=== PATIENT | female | born 1960 | race Caucasian/White ===

== ENCOUNTER 2018-02-05 10:04 | Emergency (ER) | payer OTHER ==
[~2018-02-05] VITALS: Ht 157.5 cm; Wt 60.9 kg
[2018-02-05] VITALS (7 sets, daily range): BP systolic 116–171; BP diastolic 56–92; PULSE 53–85; RESP 16; TEMP 98; O2SAT 97–100
[~2018-02-05 10:04] MED LIST: DARU800T PO; INTE100T PO; LIPI20TA PO; RALT400 PO; RITO100 PO
[2018-02-05 10:31] LABS: BASOPHIL # 0.2 TH/MM3 (0-0.2); BASOPHIL % 1.3 % (0.0-2.0); EOSINOPHIL # 0.3 TH/MM3 (0-0.4); EOSINOPHIL % 2.3 % (0.0-4.0); HEMATOCRIT 40.2 % (35.0-46.0); HEMOGLOBIN 13.3 GM/DL (11.6-15.3); LYMPHOCYTE # 5.3 TH/MM3 (1.0-4.8); MEAN CORPUSCULAR HEMOGLOBIN 29.1 PG (27.0-34.0); MEAN CORPUSCULAR HGB CONC 33.1 % (32.0-36.0); MEAN PLATELET VOLUME 8.2 FL (7.0-11.0); MONO % 11.2 % (0.0-8.0); MONOCYTE # 1.4 TH/MM3 (0-0.9); NEUT % 41.2 % (16.0-70.0); PLATELET COUNT 270 TH/MM3 (150-450); RED BLOOD COUNT 4.57 MIL/MM3 (4.00-5.30); RED CELL DISTRIBUTION WIDTH 13.3 % (11.6-17.2); WHITE BLOOD COUNT 12.1 TH/MM3 (4.0-11.0)
--- NOTE | 2018-02-05 10:32 | RADRPT ---
EXAM DATE: 02/05/2018 10:21 AM EDT AGE/SEX: 57 years / Female INDICATIONS: Stroke alert, left facial droop with left side weakness. CLINICAL DATA: This is the patient's initial encounter. Patient reports that signs and symptoms have been present for 1 day and indicates a pain score of 0/10. MEDICAL/SURGICAL HISTORY: Non-responsive. Non-responsive. RADIATION DOSE: 34.11 CTDI (mGy) COMPARISON: No prior exams available for comparison. Report was called by [ ] TECHNIQUE: CT of the head without contrast. Using automated exposure control and adjustment of the mA and/or kV according to patient size, radiation dose was kept as low as reasonably achievable to ob tain optimal diagnostic quality images. FINDINGS: Per nurse patient has a history of an AVM. There appear to be glue adjacent to a large parenchymal he morrhage measuring 4 cm that has broken into the third ventricle. There is a small amount of subarach noid blood present. There is significant mass effect with [id number] shift across the corpus callo sum with effacement of the right lateral ventricle. There is no midline shift as yet. The left hemisphere is unremarkable Posterior fossa appears normal exception of some subarachnoid blood. CONCLUSION: 1. Large right orbital frontal hemorrhage as above in this patient with history of an AVM. Significa nt mass effect is present. 2. Patient has a history of an arteriovenous malformation. Electronically signed by: Zhang Powers MD 02/05/2018 10:30 AM EDT
[2018-02-05] MEDS ORDERED: DOLU1TAB PO (10:41)
[2018-02-05] MEDS ORDERED: DARU1TAB2 PO (10:41)
[2018-02-05] MEDS ORDERED: AZIT250T3 PO (10:44)
[2018-02-05] MEDS ORDERED: CIPR0.3S2 EACH EAR (10:44)
[2018-02-05] MEDS ORDERED: ETOMIDATE 40 MG/20 ML VIAL ONE (10:50)
[2018-02-05] MEDS ORDERED: SUCCINYLCHOLINE CHLORIDE 200 MG/10 ML VIAL ONE (10:50)
[2018-02-05] MEDS ORDERED: LIDOCAINE HCL 2% 100 MG/5 ML SYRINGE ONE (10:52)
--- NOTE | 2018-02-05 10:58 | RADRPT ---
EXAM DATE: 02/05/2018 10:42 AM EDT AGE/SEX: 57 years / Female INDICATIONS: Stroke alert. CLINICAL DATA: This is the patient's initial encounter. Patient reports that signs and symptoms have been present for 1 day and indicates a pain score of Nonresponsive. MEDICAL/SURGICAL HISTORY: Non-responsive. Non-responsive. COMPARISON: No prior exams available for comparison. FINDINGS: Heart is minimally enlarged. Vascularity is normal. Minimal parental changes left base. Right lung cl ear. The portion of the bony skeleton visualized is unremarkable. CONCLUSION: Mild compensated cardiomegaly. Electronically signed by: Zhang Powers MD 02/05/2018 10:57 AM EDT
[2018-02-05 11:01] LABS: TROPONIN I LESS THAN 0.02 NG/ML (0.02-0.05)
[2018-02-05 11:11] LABS: BANDS 1 % (0-6); LYMPHOCYTES 43 % (9-44); MONOCYTES 6 % (0-8); MYELOCYTES 1 % (0-0); NEUTROPHIL # MANUAL DIFF 6.1 TH/MM3 (1.8-7.7); POLYS (SEG NEUTROPHILS) 48 % (16-70)
--- NOTE | 2018-02-05 11:11 | PD ---
HPI Chief Complaint: Stroke Alert Time Seen by Provider: 10:11 Travel History International Travel<30 days: No Contact w/Intl Traveler<30days: No Traveled to known affect area: No History of Present Illness HPI Patient presents to the emergency department as a stroke alert. States that she woke up with a headache that radiated to her neck. Developed sudden onset left-sided weakness and left-sided facial droop and slurred speech at approximately 915 this morning. Her GCS per EMS was 15 and it was 15 upon ER arrival. She was called as a stroke alert. She denies any blood thinner, aspirin, or NSAID use. She denies chest pain or shortness of breath, but reports headache. PFSH Past Medical History High Cholesterol: Yes COPD: Yes Diabetes: No Diminished Hearing: No Medical other: Yes (ARTERIOVENOUS MALFORMATION) Tetanus Vaccination: > 5 Years Influenza Vaccination: No ?: Not Menopausal: Yes Past Surgical History Appendectomy: Yes Section: Yes Social History Alcohol Use: Yes (OCCASIONALLY) Tobacco Use: No (/2 DAY) Substance Use: No Allergies-Medications (Allergen,Severity, Reaction): Coded Allergies: amoxicillin (Unverified Allergy, Intermediate, stomach upset and rash, ) Reported Meds & Prescriptions Reported Meds & Active Scripts Active Reported Azithromycin 250 Mg Tab 250 Mg PO DIRECTED Take 2 tabs (500 mg) on day 1 then 1 tab daily x 4 days. Ciprofloxacin Opth Drops (Ciprofloxacin HCl) 0.3% Soln 2 Drop EACH EAR Q8HR while awake x 5 days. Tivicay (Dolutegravir Sodium) 50 Mg Tab 50 Mg PO DAILY Prezcobix (Darunavir-Cobicistat) 800-150 Mg Tab 1 Tab PO DAILY Review of Systems Except as stated in HPI: all other systems reviewed are Neg Physical Exam Narrative GENERAL: No acute distress. SKIN: Focused skin assessment warm/dry. HEAD: Atraumatic. Normocephalic. EYES: Pupils equal and round. No scleral icterus. No injection or drainage. ENT: No nasal bleeding or discharge. Mucous membranes pink and moist. NECK: Trachea midline. No JVD. CARDIOVASCULAR: Regular rate and rhythm. No murmur appreciated. RESPIRATORY: No accessory muscle use. Clear to auscultation. Breath sounds equal bilaterally. GASTROINTESTINAL: Abdomen soft, non-tender, nondistended. Hepatic and splenic margins not palpable. MUSCULOSKELETAL: No obvious deformities. No clubbing. No cyanosis. No edema. NEUROLOGICAL: Awake and alert. slurred speech. Left upper extremity and left lower extremity weakness, not able to move extremity. PSYCHIATRIC: Appropriate mood and affect; insight and judgment normal. Data Data Last Documented VS Vital Signs Date Time Temp Pulse Resp B/P (MAP) Pulse Ox O2 Delivery O2 Flow Rate FiO2 02/05/18 11:50 74 16 146/70 (95) 100 Auto-Vent 60 02/05/18 11:00 2.00 02/05/18 10:08 98.0 Orders Orders Electrocardiogram (02/05/18 ) I-Stat Profile (02/05/18 10:11) Prothrombin Time / Inr (Pt) (02/05/18 10:11) Act Partial Throm Time (Ptt) (02/05/18 10:11) Complete Blood Count With Diff (02/05/18 10:11) Fibrinogen (02/05/18 10:11) Creatine Kinase (Cpk) (02/05/18 10:11) Troponin I (02/05/18 10:11) Ua Includes Microscopic (02/05/18 10:11) Drug Screen, Random Urine (02/05/18 10:11) Type And Screen (02/05/18 10:11) Ct Brain W/O Iv Contrast(Rout) (02/05/18 ) Chest, Single Ap (02/05/18 ) Consult Neurology (02/05/18 ) Blood Glucose (02/05/18 10:11) (Hub Use Only)Inp Phy Cons/Ref (02/05/18 10:29) Succinylcholine Inj (Quelicin Inj) (02/05/18 10:50) Etomidate Inj (Amidate Inj) (02/05/18 10:50) Lidocaine 2% Inj (Xylocaine 2% Inj) (02/05/18 10:52) Radiology Film Requests (02/05/18 ) Propofol 1000 Mg/100 Ml Inj (Diprivan 10 (02/05/18 11:15) Chest, Single Ap (02/05/18 11:11) Urinary Catheter Insert/Apply (02/05/18 11:11) Mesfin-Gastric Tube Insert/Mon (02/05/18 11:11) Etomidate Inj (Amidate Inj) (02/05/18 11:30) Succinylcholine Inj (Quelicin Inj) (02/05/18 11:30) Lidocaine 2% Inj (Xylocaine 2% Inj) (02/05/18 11:30) Restraints Non-Violent MAINOR.Q3H (02/05/18 11:46) Arterial Blood Gas (Abg) (02/05/18 11:55) Labs Laboratory Tests Test 02/05/18 10:05 02/05/18 11:35 02/05/18 11:55 White Blood Count 12.1 TH/MM3 Red Blood Count 4.57 MIL/MM3 Hemoglobin 13.3 GM/DL Bedside Hemoglobin 12.9 G/DL Hematocrit 40.2 % Bedside Hematocrit 38.0 % Mean Corpuscular Volume 88.0 FL Mean Corpuscular Hemoglobin 29.1 PG Mean Corpuscular Hemoglobin Concent 33.1 % Red Cell Distribution Width 13.3 % Platelet Count 270 TH/MM3 Mean Platelet Volume 8.2 FL Neutrophils (%) (Auto) 41.2 % Lymphocytes (%) (Auto) 44.0 % Monocytes (%) (Auto) 11.2 % Eosinophils (%) (Auto) 2.3 % Basophils (%) (Auto) 1.3 % Neutrophils # (Auto) 5.0 TH/MM3 Lymphocytes # (Auto) 5.3 TH/MM3 Monocytes # (Auto) 1.4 TH/MM3 Eosinophils # (Auto) 0.3 TH/MM3 Basophils # (Auto) 0.2 TH/MM3 CBC Comment AUTO DIFF Differential Total Cells Counted 100 Neutrophils % (Manual) 48 % Band Neutrophils % 1 % Lymphocytes % 43 % Monocytes % 6 % Eosinophils % 1 % Neutrophils # (Manual) 6.1 TH/MM3 Myelocytes 1 % Differential Comment FINAL DIFF MANUAL Atypical Lymphocytes % Platelet Estimate NORMAL Platelet Morphology Comment NORMAL Red Cell Morphology Comment NORMAL Prothrombin Time 10.0 SEC Prothromb Time International Ratio 1.0 RATIO Activated Partial Thromboplast Time 20.8 SEC Fibrinogen 392 mg/dL Bedside Sodium 141 MMOL/L Bedside Potassium 3.6 MMOL/L Bedside Chloride 108 MMOL/L Bedside Blood Urea Nitrogen 17 MG/DL Bedside Creatinine 1.1 MG/DL Bedside Glucose 147 MG/DL Total Creatine Kinase 45 U/L Troponin I LESS THAN 0.02 NG/ML Blood Gas Puncture Site RT RADIAL Blood Gas Patient Temperature 98.6 Blood Gas HCO3 23 mmol/L Blood Gas Base Excess -1.6 mmol/L Blood Gas Oxygen Saturation 98 % Arterial Blood pH 7.36 Arterial Blood Partial Pressure CO2 42 mmHg Arterial Blood Partial Pressure O2 280 mmHG Arterial Blood Oxygen Content 18.9 Vol % Arterial Blood Carboxyhemoglobin 0.7 % Arterial Blood Methemoglobin 0.7 % Blood Gas Hemoglobin 13.2 G/DL Oxygen Delivery Device VENTILATOR Blood Gas Ventilator Setting 450/16/PEEP5 Blood Gas Inspired Oxygen 60 % MDM Medical Screen Exam Complete: Yes Emergency Medical Condition: Yes Differential Diagnosis CVA, TIA, ICH, SAH, BLEED 2/2 AVM Narrative Course Patient presents to the emergency department as a stroke alert. Up with a headache and developed left sided weakness and slurred speech. Patient called as stroke alert. 1023: Neurology advised patient has ICH. 1027: NSY paged as CT shows ICH. Advised to call [facility] for transfer. 1037: Spoke to transfer center at [facility]. 1040: Dr. Maier, [facility] accepted patient. 1045: Spoke to MARYJANE Finn substation operator helper generation. Accepted patient. Discussed proceeding with intubation for airway protection. 1105: Patient intubated. Pretreated with 90mg IV lidocaine, etomidate 20mg IV, and succinylcholine 100mg IV for intubation. Patient place don propofol gtt, BP 121/62. After the risks and benefits were discussed the following procedure was performed: INTUBATION: The patient was put in optimal position for the procedure. Rapid sequence intubation was initiated by me using 20 milligrams of etomidate IV and 100 milligrams of succ IV. She was pretreated with 90 mg IV lidocaine. The patient was intubated with a 8-0 cuffed endotracheal tube. Tube placement was confirmed by visualization of the tube and balloon passing through the cords, capnometry and subsequent chest x-ray. Breath sounds were equal and well aerated bilaterally postintubation. No breath sounds over stomach. Patient tolerated procedure well. Labs: Slightly increased glucose, fibrinogen, and WBC count. CXR pre-intubation: FINDINGS: Heart is minimally enlarged. Vascularity is normal. Minimal parental changes left base. Right lung clear. The portion of the bony skeleton visualized is unremarkable. CONCLUSION: Mild compensated cardiomegaly. Head CT-FINDINGS: Per nurse patient has a history of an AVM. There appear to be glue adjacent to a large parenchymal hemorrhage measuring 4 cm that has broken into the third ventricle. There is a small amount of subarachnoid blood present. There is significant mass effect with [id number] shift across the corpus callosum with effacement of the right lateral ventricle. There is no midline shift as yet. The left hemisphere is unremarkable Posterior fossa appears normal exception of some subarachnoid blood. CONCLUSION: 1. Large right orbital frontal hemorrhage as above in this patient with history of an AVM. Significant mass effect is present. 2. Patient has a history of an arteriovenous malformation. post intubation CXR: FINDINGS: ET tube and nasogastric tube are in good position. The lungs are clear. The heart and pulmonary vascularity are normal. The portion of the bony skeleton visualized is unremarkable. CONCLUSION: Support apparatus in good position. ECG: Sinus bradycardia, rate 51, T-wave inversion in lead III, V1, and V2 Aggregate critical care time was 35 minutes. Time to perform other separately billable procedures was not included in the critical care time. My time did not include minutes spent treating any other patients simultaneously or on activities that did not directly contribute to the patient's treatment. The services I provided to this patient were to treat and/or prevent clinically significant deterioration that could result in: , herniation, increased intracranial bleeding I provided critical care services requiring my management, as noted below: Chart data review, documentation time, medication orders and management, vital sign assessments/reviewing monitor data, ordering and reviewing lab tests, ordering and interpreting/reviewing x-rays and diagnostic studies, intubation, care of the patient and discussion of the patient with the admitting physicians. Stroke Alert NIHSS NIH Stroke Scale Result: 13 NIHSS Time Completed: 10:10 Thrombolytic Contraindications Contraindications: CT Intracranial Bleed Contraindications Comment: h/o AVM Physician Communication Physician Communication 10:40-spoke to Dr. Maier, ER attending at [facility]. Will accept patient. 10:45-spoke to Dr. Rojo, neurosurgery substation operator helper generation at [facility], he will accept patient. Diagnosis Diagnosis: Primary Impression: Intracerebral hemorrhage Qualified Codes: I61.9 - Nontraumatic intracerebral hemorrhage, unspecified Admitting Physician Requests: Admit Disposition: 70 TRANSFER TO OTHER FACILITY ([facility]) Condition: Critical Arlene Valdez MD Feb 05, 2018 11:11
[2018-02-05] MEDS ORDERED: PROPOFOL 1000 MG/100 ML INJ 100 ML IV PRN (11:15)
[2018-02-05] MEDS ORDERED: ETOMIDATE 20 MG/10 ML VIAL IV PUSH ONE (11:30)
[2018-02-05] MEDS ORDERED: LIDOCAINE HCL 2% 100 MG/5 ML SYRINGE IV PUSH ONE (11:30)
[2018-02-05] MEDS ORDERED: SUCCINYLCHOLINE CHLORIDE 100 MG/5 ML SYRINGE IV PUSH ONE (11:30)
--- NOTE | 2018-02-05 12:07 | RADRPT ---
EXAM DATE: 02/05/2018 12:03 PM EDT AGE/SEX: 57 years / Female INDICATIONS: Post intubation. Evaluate ET tube placement and OG tube placement. CLINICAL DATA: This is the patient's initial encounter. Patient reports that signs and symptoms have been present for 1 day and indicates a pain score of Nonresponsive. MEDICAL/SURGICAL HISTORY: Non-responsive. Non-responsive. COMPARISON: [facility] – [place], CHEST SINGLE AP, 02/05/2018. . FINDINGS: ET tube and nasogastric tube are in good position. The lungs are clear. The heart and pulmonary vascu larity are normal. The portion of the bony skeleton visualized is unremarkable. CONCLUSION: Support apparatus in good position. Electronically signed by: Zhang Powers MD 02/05/2018 12:06 PM EDT
[2018-02-05 12:24] LABS: BACTERIA, URINE MOD /hpf; BILIRUBIN, URINE NEG (NEG); BLOOD, URINE SMALL (NEG); GLUCOSE,URINE NEG (NEG); HYALINE CAST, URINE 1 /lpf (RARE); KETONE, URINE NEG (NEG); MUCUS URINE FEW /lpf (OCC); NITRITE,URINE NEG (NEG); SQUAMOUS EPITHELIAL CELL URINE 1 /hpf (0-5); URINE COLOR YELLOW (YELLW/STRAW); URINE LEUKOCYTE ESTERASE NEG (NEG)
--- NOTE | 2018-02-06 12:40 | EKG ---
Date Performed: 02/05/2018 Time Performed: 10:31:07 PTAGE: 57 years EKG: SINUS BRADYCARDIA POSSIBLE LEFT ATRIAL ENLARGEMENT BORDERLINE ECG NO PREVIOUS TRACING DOCTOR: Damaso Sol Interpretating Date/Time 02/06/2018 12:36:54
== END 2018-02-05 15:56 | disposition short-term general hospital (02) ==
LOC: NEPC 10:04
DX: I61.8 Other nontraumatic intracerebral hemorrhage (principal); R29.810 Facial weakness; G81.94 Hemiplegia, unspecified affecting left nondominant side; R47.81 Slurred speech; E78.00 Pure hypercholesterolemia, unspecified; J44.9 Chronic obstructive pulmonary disease, unspecified; Q27.30 Arteriovenous malformation, site unspecified; R00.1 Bradycardia, unspecified; I51.7 Cardiomegaly
CPT/HCPCS: 31500; 36600; 43753; 51702; 70450; 71045; 80048; 80307; 81001; 82550; 82805; 84484; 85007; 85027; 85384; 85610; 85730; 93005; 96365; 99291; J0330